=== PATIENT | female | born 1980 | race African-American/Black ===

== ENCOUNTER 2025-05-20 18:48 | Emergency (ER) | payer MEDICAID ==
[~2025-05-20] VITALS: Ht 167.6 cm; Wt 70.0 kg
[2025-05-20 18:57] VITALS: O2SAT 100
[2025-05-20 20:34] LABS: BASOPHILS % 0.6 % (0.0-2.0); EOSINOPHILS % 3.0 % (0.0-5.0); HEMATOCRIT. 31.7 % (36.0-48.0); HEMOGLOBIN. 9.7 g/dL (12.0-16.0); LYMPHOCYTES % 33.0 % (20.0-50.0); MEAN PLATELET VOLUME 8.1 fl (7.4-10.4); MONOCYTES % 8.2 % (2.0-8.0); NEUTROPHILS % 55.2 % (40.0-76.0); PLATELET 376 x1000/uL (130-400); RED BLOOD CELL COUNT 3.99 mill/uL (4.2-5.4); RED CELL DISTRIBUTION WIDTH 16.8 % (11.6-14.6)
[2025-05-20 20:42] LABS: INR 1.0
[2025-05-20] MEDS: CLONIDINE 0.1MG TABLET PO ONE (20:55)
[2025-05-20 20:56] LABS: CREATININE 0.7 mg/dL (0.6-1.0); HCG SCREEN NEGATIVE
[2025-05-20 20:57] LABS: UREA NITROGEN BLOOD 6 mg/dL (9-23)
[2025-05-20 20:58] LABS: TROPONIN I HIGH SENSITIVITY < 4 ng/L (3.0-34)
[2025-05-20 22:38] VITALS: BP 155/75; PULSE 75; RESP 18; TEMP 36.9; O2SAT 100
== END 2025-05-20 22:41 | disposition home or self-care (01) ==
LOC: ER 18:48
DX: R07.9 Chest pain, unspecified (principal); I10 Essential (primary) hypertension
CPT/HCPCS: 36415; 71045; 80048; 83735; 84484; 84703; 85025; 93005; 99285; A4606